=== PATIENT | male | born 1965 | race Caucasian/White ===

== ENCOUNTER → 2020-04-11 | Outpatient (CLI) | payer OTHER ==
[~2020-04-11] MED LIST: AMARYL1 MG PO; AMARYL2 MG PO; LIPITOR 40 MG T40 M1 PO; LOSARTAN-HCTZ1 EAC2 PO; METFORMIN HCL500 MG PO; NEURONTIN 300M300 M2 PO
[2020-04-11 11:14] LABS: URINE BILIRUBIN NEGATIVE (Negative); URINE BLOOD NEGATIVE (Negative); URINE CLARITY CLEAR; URINE COLOR YELLOW; URINE GLUCOSE-RANDOM* NEGATIVE (Negative); URINE KETONES NEGATIVE (Negative); URINE LEUKOCYTES-REFLEX NEGATIVE (Negative); URINE NITRITE-REFLEX NEGATIVE (Negative); URINE PROTEIN (DIPSTICK) NEGATIVE (Negative)
[2020-04-11 11:27] LABS: HEMATOCRIT 42.5 % (42.0-52.0); HEMOGLOBIN 14.3 gm/dL (14.0-18.0); MCH 30.4 pg (26.0-34.0); MCHC 33.6 g/dL (28.0-37.0); MCV 90.5 fL (80.0-100.0); RBC 4.7 mil/uL (4.50-6.00); RDW 13.4 % (10.5-14.5); WBC 6.8 thou/uL (4.0-11.0)
[2020-04-11 11:32] LABS: ALBUMIN 4.1 g/dL (3.4-5.0); CALCIUM 8.9 mg/dL (8.5-10.1); POTASSIUM 4.3 mmol/L (3.5-5.1)
[2020-04-11 11:35] LABS: PROTIME 11.1 Seconds (9.3-11.4)
[2020-04-12 20:33] LABS: GLYCOHEMOGLOBIN (HGB A1C) 6.9 % (4.8-5.6)
== END ==
LOC: LAB 09:00
PROVIDERS: ATTEND Orthopaedic Surgery
DX: Z01.818 Encounter for other preprocedural examination (principal); I49.9 Cardiac arrhythmia, unspecified

== ENCOUNTER 2020-04-16 10:28 | Observation (INO) | payer OTHER ==
[2020-04-11 11:14] LABS: URINE BILIRUBIN NEGATIVE (Negative); URINE BLOOD NEGATIVE (Negative); URINE CLARITY CLEAR; URINE COLOR YELLOW; URINE GLUCOSE-RANDOM* NEGATIVE (Negative); URINE KETONES NEGATIVE (Negative); URINE LEUKOCYTES-REFLEX NEGATIVE (Negative); URINE NITRITE-REFLEX NEGATIVE (Negative); URINE PROTEIN (DIPSTICK) NEGATIVE (Negative)
[2020-04-11 11:27] LABS: HEMATOCRIT 42.5 % (42.0-52.0); HEMOGLOBIN 14.3 gm/dL (14.0-18.0); MCH 30.4 pg (26.0-34.0); MCHC 33.6 g/dL (28.0-37.0); MCV 90.5 fL (80.0-100.0); RBC 4.7 mil/uL (4.50-6.00); RDW 13.4 % (10.5-14.5); WBC 6.8 thou/uL (4.0-11.0)
[2020-04-11 11:32] LABS: ALBUMIN 4.1 g/dL (3.4-5.0); CALCIUM 8.9 mg/dL (8.5-10.1); POTASSIUM 4.3 mmol/L (3.5-5.1)
[2020-04-11 11:35] LABS: PROTIME 11.1 Seconds (9.3-11.4)
--- NOTE | 2020-04-11 13:42 | EKG ---
[address] [address] ELECTROCARDIOGRAM REPORT Name: MERY GARCIA Room #: PRE [facility].#: [id number] Admission: Attend Phys: Nathanael Yuan MD Discharge: Date of : 67 Report #: [id number] [facility] Test Date: 2020-04-11 Test Time: 11:01:29 Pat Name: MERY GARCIA Department: Room: Gender: [employer] Driver: Marsha FISHER : 1965 Requested By: Nathanael Yuan Order Number: [id number] MD: Neil Urbina Measurements Intervals Aurora Rate: 83 P: 54 HI: 179 QRS: 49 QRSD: 91 T: 26 QT: 368 QTc: 433 Interpretive Statements Sinus rhythm Probable left atrial enlargement No previous ECG available for comparison Electronically Signed On 04-11-2020 13:41:59 DIKE SUPERVISOR by Neil Urbina [email or web address] <ELECTRONICALLY SIGNED> By: Neil Urbina MD, [facility] 04/11/20 1341 1101 1101 Neil Urbina MD, FACC /EPI
[2020-04-12 20:33] LABS: GLYCOHEMOGLOBIN (HGB A1C) 6.9 % (4.8-5.6)
[2020-04-16] VITALS (7 sets, daily range): BP systolic 125–143; BP diastolic 72–89
[~2020-04-16] VITALS: Ht 180.3 cm; Wt 127.9 kg
--- NOTE | ~2020-04-16 | O ---
[facility] [place] [address] OPERATIVE REPORT Name: MERY GARCIA Room #: 434-P [facility] MBunny#: [id number] Admission: 04/16/20 Attend Phys: Nathanael Yuan MD Discharge: Date of : 67 Report #: [id number] THIS REPORT FOR: cc: YONATHAN SMITH Physician not on staff Nathanael Yuan MD ~ DATE OF SERVICE: 04/16/2020 PREOPERATIVE DIAGNOSIS: Left knee medial compartment osteoarthritis. POSTOPERATIVE DIAGNOSIS: Left knee medial compartment osteoarthritis. PROCEDURE: Left knee medial compartment arthroplasty using Navio robotic recovery assistant. SURGEON: Nathanael Yuan MD. CNP: Conchita Calhoun PA-C. INDICATIONS FOR CNP: Throughout the case, extensive retraction and manipulation of the knee was required. This was supported by my recovery assistant. ANESTHESIA: LMA with an adductor canal block. IMPLANTS: Núñez [employer] Nephew size 8, Journey II Oxinium medial femoral component a size 7 tibia and a size 8 polyethylene. TOURNIQUET TIME: 48 minutes. ESTIMATED BLOOD LOSS: 25 mL. COMPLICATIONS: None. SPECIMENS: None. CONDITION UPON LEAVING THE OPERATING ROOM: Stable. INDICATIONS FOR PROCEDURE: The patient is a 54-year-old gentleman with severe left knee medial compartment osteoarthritis. He had failed conservative measures for this and after discussion with him, he elected for left medial compartment knee arthroplasty. DESCRIPTION OF PROCEDURE: Risks, benefits, alternatives and complications were discussed in detail with the patient including but not limited to risk of anesthesia, risk of damage to nerves, arteries, blood vessels, risk for [facility] [address] [place] [address] OPERATIVE REPORT Name: MERY GARCIA Room #: 434-P [facility] Christina#: [id number] Admission: 04/16/20 Attend Phys: Nathanael Yuan MD Discharge: Date of : 67 Report #: [id number] infection, bleeding, risk for continued knee pain, need for reoperation. Informed consent was obtained from the patient. Left knee was appropriately marked in the preoperative holding area. IV Ancef was given for preoperative antibiotics. Adductor canal block was placed by anesthesia. He was brought to the operating room and placed in supine position on the operating room table. LMA anesthesia was induced without complication. Tourniquet was placed on the left thigh. Left lower extremity was prepped and draped in normal sterile fashion. Timeout was performed properly identifying the patient, procedure as well as the instrumentation and implants. All in the operating room were in agreement. Left lower extremity was exsanguinated, tourniquet was inflated. Tourniquet time was 48 minutes. Standard approach to the medial knee was made with 10 blade through the skin. Dissection was taken down sharply to the fascia and deep flaps were developed medially and laterally. Fresh 10-blade was used to make a medial parapatellar arthrotomy and the knee was inspected. There was severe medial compartment osteoarthritis. Lateral compartment was well maintained. ACL was intact. Patella demonstrated grade 2 chondromalacia. It was felt that we could proceed with medial compartment arthroplasty. Reference pins were placed in the femur and the tibia and the knee was digitally mapped using the [employer] robotic system. Intraoperative plan was made we sized the size 8 femur with a size 7 tibia and a 9 spacer. After acceptance of the intraoperative plan, the femoral and tibial resections were made with a Navio bur. The tibia was sized, found to be a size 7. A size 7 tibial trial was placed and drilled to size 8, femoral trial was placed and this was then trialed with a size 8 polyethylene. Size 8 polyethylene demonstrated 1 to 1.5 mm of laxity throughout range of motion medially and had good balance. Trial components were removed. Bony ends were thoroughly irrigated with normal saline. A final size 7 tibia, size 8 Journey II Oxinium medial femoral component were cemented in place using standard cementation techniques. While the cement cured, a periarticular injection consisting of morphine, ropivacaine, epinephrine and Toradol was placed around the knee joint capsule. After the cement cured, the tourniquet was deflated. Hemostasis was obtained with Bovie cautery. Final size 8 polyethylene was placed. A gram of vancomycin was placed deep in the joint. Fascia was closed with 0 Vicryl, skin was closed with 2-0 Vicryl, skin staple and a LONG dressing was applied. The patient tolerated this procedure well and went to recovery room under care of anesthesia postoperatively. By: 1700 1744 Nathanael Yuan MD /nt
--- NOTE | 2020-04-16 18:33 | NUR ---
Admit from OR at approx 1630; transferred to bed safely. Vital signs stable. On O2 at 2lpm via nasal cannula. On MS, not on telemetry; no complains and signs of chest pain, crushing sensation and heaviness. Assisted in ADLs. On regular diet- tolerating well; no nausea, no vomiting and no abdominal pain noted. On blood sugar monitoring, taken and recorded accordingly. Able to swallow meds w/o difficulty. Admission assessment, history and education done. Admission forms signed at OR. With at bedside. With SL at R hand- D51/2NS at 100cc/hr. POD 0 s/p L knee UKA, Navio assist- dressing C/D/I; Maximus hose, polar pack, SCD in place. No complains of pain made during assessment. Continent of bowel and bladder, able to urinate post op; used urinal; output measured and recorded accordingly. To continue monitoring patient.
[2020-04-17 00:27] VITALS: BP 124/68
--- NOTE | 2020-04-17 04:07 | NUR ---
RECEIVED CARE OF THIS PATIENT AT 1900. PATIENT ALERT AND ORIENTED X4. C/O MILD PAIN, SCHEDULED PAIN MED GIVEN. HAS LONG DRESSING ON LEFT KNEE WITH TEDS, SCD'S AND POLAR ICE. IV IN L HAND WITH FLUIDS INFUSING. STANDS AT BEDSIDE TO USE URINAL. HAS BORDER FOAM DRESSING IN INNER L ANKLE. SLEPT MOST OF NIGHT.
[2020-04-17 04:58] LABS: HEMATOCRIT 39.4 % (42.0-52.0); MCH 30.2 pg (26.0-34.0); MCHC 33.1 g/dL (28.0-37.0); MCV 91.4 fL (80.0-100.0); RBC 4.31 mil/uL (4.50-6.00); RDW 13.4 % (10.5-14.5); WBC 10.6 thou/uL (4.0-11.0)
[2020-04-17 06:31] VITALS: BP 128/73
--- NOTE | 2020-04-17 08:13 | NUR ---
ASSESSMENT: CM REVIEWED CHART. PT IS S/P L TKA. PT IS ALERT AND ORIENTED X4. PT REPORTS LIVING IN A HOUSE WITH HIS . PT REPORTS ONE STEP TO ENTER THE HOME AND ABOUT 7 STEPS WITH HANDRAILS TO HIS BEDROOM/MAIN LEVEL. PT REPORTTS THAT HE HAS A CANE AT HOME TO ASSIST WITH AMBULATION. PT IS TO WORK WITH PHYSICAL THERAPY. CM DISCUSSED PENDING PT EVAL HE MAY NEED A WALKER. PT REPORTS HE HAS NO PREFERENCE OF Telinet. PT REPORTS THAT HE HAS OUTPATIENT THERAPY ARRANGED AT [facility] TO BEGIN ON THURSDAY AT 3PM. CM WILL CONTINUE TO FOLLOW TO ASSIST NEEDED.
[2020-04-17 08:30] VITALS: BP 134/86
[2020-04-17 09:00] VITALS: BP 134/86
[2020-04-17 09:36] VITALS: BP 134/86
--- NOTE | 2020-04-17 10:08 | NUR ---
Received awake on bed. Due medications given as prescribed, able to swallow meds w/o difficulty. On room air. Vital signs stable. On MS, not on telemetry; no complains and signs of chest pain, crushing sensation and heaviness. Assisted in ADLs. On regular diet- tolerating well; no nausea, no vomiting and no abdominal pain noted. On blood sugar monitoring, taken and recorded accordingly. Continent of bowel and bladder, able to use urinal- output measured and recorded accordingly.With D51/2Ns at 100cc/hr, infusing well at L hand; saline locked. POD 1, L total knee- dressing C/D/I- polar pack, vincent hose and SCDs in place; no bleeding and drainage noted. No complains of pain made during assessment. For PT evaluation- as per PT Sterling, will inform Ortho PA re: evaluation results. Possible discharge today, a/w physician's order; as per CM- a/w wheelchair delivery. Able to sit out on the chair. To continue monitoring patient.
== END 2020-04-17 15:10 | disposition home or self-care (01) ==
LOC: OR 10:28 → TBA 10:29 → OR 12:59 → 4S 15:51 → OR 15:58 → 4S 04-17 15:10
PROVIDERS: ADMIT Orthopaedic Surgery; ATTEND Orthopaedic Surgery
DX: M17.12 Unilateral primary osteoarthritis, left knee (principal); E78.5 Hyperlipidemia, unspecified; Z79.899 Other long term (current) drug therapy
CPT/HCPCS: 27446; S2900; 50010; 50101; 50415; 50954; 51130; 51225; 51320; 51412; 53078; 53370; 56527; 56528; 57095; 57103; 57110; 57127; 57180; 62110; 62900; 64039; 70005